=== PATIENT | male | born 1970 | race Caucasian/White ===

== ENCOUNTER 2020-07-04 17:36 | Inpatient (IN) | payer BC, OTHER ==
[~2020-07-04] VITALS: Ht 177.8 cm; Wt 90.4 kg
[2020-07-04] MEDS ORDERED: ONDANSETRON HCL 4 MG/2 ML VIAL IV ONE (18:00)
[2020-07-04] MEDS ORDERED: SODIUM CHLORIDE 0.9% 1,000 ML IV ONE (18:00)
[2020-07-04] MEDS ORDERED: LORazepam 2MG/ML-1ML VIAL IV ONE (18:00)
[2020-07-04 19:05] LABS: Basophils # (auto) 0 10 ^3/uL (0-0.2); Basophils % (auto) 0.4 % (0.0-2.0); Eosinophils # (auto) 0 10 ^3/uL (0-0.8); Eosinophils % (auto) 0.2 % (0.0-7.0); Hematocrit 46.7 % (41.0-53.0); Lymphocytes # (auto) 1.1 10 ^3/uL (0.4-5.4); Lymphocytes % (auto) 13.7 % (10.0-50.0); Mean Corpuscular Hemoglobin 29.6 pg (28.0-32.0); Mean Corpuscular Hgb Conc. 34.3 g/dL (32.0-36.0); Mean Corpuscular Volume 86.4 fL (80.0-100.0); Monocytes # (auto) 0.4 10 ^3/uL (0-1.3); Monocytes % (auto) 4.9 % (0.0-12.0); Neutrophils # (auto) 6.6 10 ^3/uL (1.6-8.6); Neutrophils % (auto) 80.8 % (37.0-80.0); Nucleated Red Blood Cells % 0.1 %; Platelet Count (auto) 302 10^3/uL (140-450); Red Blood Cells 5.41 10^6/uL (4.5-5.90); Red Cell Distribution Width 13.3 % (11.8-14.3); White Blood Cell 8.1 10^3/uL (4.4-10.8)
[2020-07-04 19:20] LABS: Albumin 4.9 g/dL (3.4-5.0); Anion Gap 12 (5-15); Blood Urea Nitrogen 26 mg/dL (7-18); Calcium 9.7 mg/dL (8.5-10.1); Carbon Dioxide 23 mmol/L (21-32); Chloride 102 mmol/L (98-107); Glucose 128 mg/dL (74-106); Potassium 3.9 mmol/L (3.5-5.1); Sodium 137 mmol/L (136-145)
[2020-07-04 19:23] LABS: Alanine Aminotransferase 119 U/L (16-61); Aspartate Aminotransferase 20 U/L (15-37); BUN/Creatinine Ratio 25.2; GFR African American 99 mL/min; GFR Non-African American 82 mL/min; INR 1.02 (0.9-1.15); Partial Thromboplastin Time 23.7 sec (23.0-31.2)
[2020-07-04 19:26] LABS: Alkaline Phosphatase 39 U/L (45-117); Bilirubin, Total 0.8 mg/dL (0.2-1.0); Total Protein 8.8 g/dL (6.4-8.2)
[2020-07-04] MEDS ORDERED: LORazepam 0.5 MG TAB PO PRN (20:15)
[2020-07-04] MEDS ORDERED: KETOROLAC TROMETH 60MG/2ML VIAL IM PRN (20:15)
[2020-07-04] MEDS ORDERED: ACETAMINOPHEN 500 MG TAB PO PRN (20:15)
[2020-07-04] MEDS: SODIUM CHLORIDE 0.9% 1,000 ML IV SCH (20:15)
[2020-07-04] MEDS ORDERED: DOCUSATE CALCIUM 240 MG CAP PO PRN (20:15)
[2020-07-04] MEDS ORDERED: NITROGLYCERIN 0.4 MG SL TAB SL PRN (20:15)
[2020-07-04] MEDS ORDERED: MORPHINE SULF INJ 2 MG/ML SYRINGE 1ML IV PRN (20:15)
[2020-07-04] MEDS ORDERED: ONDANSETRON HCL 4 MG/2 ML VIAL IV PRN (20:15)
[2020-07-04] MEDS ORDERED: LABETALOL HCL 5 MG/ML 4ML SYRINGE IV PRN (20:15)
[2020-07-04] MEDS ORDERED: MECLIZINE HCL 25 MG TAB PO PRN (20:30)
[2020-07-04 21:28] LABS: Basophils # (auto) 0 10 ^3/uL (0-0.2); Basophils % (auto) 0.2 % (0.0-2.0); Eosinophils # (auto) 0 10 ^3/uL (0-0.8); Eosinophils % (auto) 0.1 % (0.0-7.0); Hematocrit 44.2 % (41.0-53.0); Hemoglobin 15.4 g/dL (13.5-17.5); Lymphocytes # (auto) 0.7 10 ^3/uL (0.4-5.4); Mean Corpuscular Hemoglobin 29.9 pg (28.0-32.0); Mean Corpuscular Hgb Conc. 34.7 g/dL (32.0-36.0); Mean Corpuscular Volume 86.1 fL (80.0-100.0); Monocytes # (auto) 0.4 10 ^3/uL (0-1.3); Monocytes % (auto) 5.6 % (0.0-12.0); Neutrophils # (auto) 6.6 10 ^3/uL (1.6-8.6); Neutrophils % (auto) 85.1 % (37.0-80.0); Nucleated Red Blood Cells % 0.5 %; Platelet Count (auto) 288 10^3/uL (140-450); Red Blood Cells 5.14 10^6/uL (4.5-5.90); Red Cell Distribution Width 12.9 % (11.8-14.3); White Blood Cell 7.8 10^3/uL (4.4-10.8)
[2020-07-04] MEDS ORDERED: LORazepam 2MG/ML-1ML VIAL IV PRN (22:15)
[2020-07-05] MEDS: ACCU-CHEK COMFORT CURVE STRIP VI SCH ×5 (00:21→23:29)
[2020-07-05] MEDS ORDERED: OME20GT PO (03:39)
[2020-07-05] MEDS ORDERED: ATEN-60 PO (03:39)
[2020-07-05] MEDS ORDERED: CITA10TA70 PO (03:39)
[2020-07-05] MEDS: SODIUM CHLORIDE 0.9% 1,000 ML IV SCH ×3 (04:37→20:10)
[2020-07-05 05:26] VITALS: BP 135/80
[2020-07-05 08:00] VITALS: BP 141/75
[2020-07-05] MEDS: cefTRIAXone 1GM/50ML D5W 50 ML IV SCH (08:00)
[2020-07-05] MEDS: CITALOPRAM HYDROBR 20 MG TAB PO SCH (08:01)
[2020-07-05] MEDS: ENOXAPARIN SOD 40 MG/0.4 ML SYRINGE SC SCH (08:01)
[2020-07-05] MEDS: PANTOPRAZOLE 40 MG TAB PO SCH (08:01)
[2020-07-05 08:52] LABS: Albumin 3.8 g/dL (3.4-5.0); Calcium 8.3 mg/dL (8.5-10.1); Potassium 3.8 mmol/L (3.5-5.1)
[2020-07-05 08:55] LABS: BUN/Creatinine Ratio 28.3; Total Protein 7.3 g/dL (6.4-8.2)
[2020-07-05] MEDS ORDERED: OMEP-434 PO (10:49)
[2020-07-05 12:16] LABS: Urine Amorphous Crystal FEW /hpf (None Seen); Urine Bacteria NONE SEEN /hpf (None Seen); Urine Blood Negative /uL (Negative); Urine Mucus MODERATE (None Seen); Urine Specific Gravity 1.031 (1.001-1.035); Urine WBC 3 /hpf (0 - 3)
[2020-07-05] MEDS ORDERED: MECLIZINE HCL 25 MG TAB PO ONE (13:30)
[2020-07-05 16:00] VITALS: BP 145/83
[2020-07-05] MEDS: MECLIZINE HCL 25 MG TAB PO SCH ×2 (17:27→22:13)
[2020-07-05 22:00] VITALS: BP 142/89
[2020-07-06 01:05] VITALS: BP 142/89
[2020-07-06] MEDS: SODIUM CHLORIDE 0.9% 1,000 ML IV SCH (05:23)
[2020-07-06] MEDS: ACCU-CHEK COMFORT CURVE STRIP VI SCH ×2 (06:00→11:50)
[2020-07-06] MEDS: MECLIZINE HCL 25 MG TAB PO SCH ×2 (07:00→11:30)
[2020-07-06 07:03] LABS: Basophils # (auto) 0 10 ^3/uL (0-0.2); Basophils % (auto) 0.6 % (0.0-2.0); Eosinophils # (auto) 0.1 10 ^3/uL (0-0.8); Eosinophils % (auto) 2.1 % (0.0-7.0); Hematocrit 40.4 % (41.0-53.0); Hemoglobin 13.7 g/dL (13.5-17.5); Lymphocytes # (auto) 1.8 10 ^3/uL (0.4-5.4); Lymphocytes % (auto) 31.4 % (10.0-50.0); Mean Corpuscular Hemoglobin 29.2 pg (28.0-32.0); Mean Corpuscular Volume 85.8 fL (80.0-100.0); Monocytes # (auto) 0.4 10 ^3/uL (0-1.3); Monocytes % (auto) 7.1 % (0.0-12.0); Neutrophils # (auto) 3.4 10 ^3/uL (1.6-8.6); Neutrophils % (auto) 58.8 % (37.0-80.0); Nucleated Red Blood Cells % 0.6 %; Platelet Count (auto) 247 10^3/uL (140-450); Red Blood Cells 4.71 10^6/uL (4.5-5.90); Red Cell Distribution Width 12.8 % (11.8-14.3); White Blood Cell 5.7 10^3/uL (4.4-10.8)
[2020-07-06 07:32] LABS: BUN/Creatinine Ratio 16.7; Calcium 8.2 mg/dL (8.5-10.1); Potassium 3.9 mmol/L (3.5-5.1)
[2020-07-06 08:00] VITALS: BP 157/90
[2020-07-06] MEDS: cefTRIAXone 1GM/50ML D5W 50 ML IV SCH (08:21)
[2020-07-06] MEDS: ENOXAPARIN SOD 40 MG/0.4 ML SYRINGE SC SCH (08:22)
[2020-07-06] MEDS: PANTOPRAZOLE 40 MG TAB PO SCH (08:22)
[2020-07-06] MEDS: CITALOPRAM HYDROBR 20 MG TAB PO SCH (08:22)
[2020-07-06 13:15] VITALS: BP 157/80
== END 2020-07-06 13:45 | disposition home or self-care (01) | DRG 149 ==
LOC: ER 17:36 → TELE 20:16 → TELE-CENTR 07-05 02:52
PROVIDERS: ADMIT Family Medicine; ATTEND Internal Medicine
DX: H83.09 Labyrinthitis, unspecified ear (principal); E86.0 Dehydration; H91.92 Unspecified hearing loss, left ear; I10 Essential (primary) hypertension; Z20.822 Contact with and (suspected) exposure to COVID-19; Z90.49 Acquired absence of other specified parts of digestive tract; H53.2 Diplopia; R73.9 Hyperglycemia, unspecified; F41.9 Anxiety disorder, unspecified; R26.9 Unspecified abnormalities of gait and mobility
CPT/HCPCS: 36415; 70450; 70553; 71045; 80048; 80053; 81001; 82962; 83036; 84443; 84484; 85025; 85610; 85730; 87426; 93005; 96361; 96374; 96375; G0378; J0696; J2405